=== PATIENT | female | born 1935 | race American Indian/Alaskan Native ===

== ENCOUNTER 2016-10-01 11:34 | Outpatient (CLI) | payer MEDICARE ==
--- NOTE | 2016-10-01 13:44 | Mammography Report ---
Right mammogram: Compared to 04/23/15. CAD study utilized. Findings: Predominance of adipose tissue. Benign calcifications. 3 mm new density right mid breast seen on MLO view. Normal axilla. Impression: New focal density right breast. Recommend spot magnification and sonographic examination. BI-RADS CATEGORY: 0 = Needs additional imaging evaluation ACR BI-RADS MAMMOGRAPHIC CODES: 0 = Needs additional imaging evaluation; 1 = Negative; 2 = Benign; 3 = Probably benign; 4 = Suspicious; 5 = Malignant; 6 = Known biopsy-proven malignancy COMMENT: 1. Dense breast tissue, i.e., adenosis, fibrocystic changes, etc., may obscure an underlying neoplasm. 2. Approximately 10% of cancers are not detected with mammography. 3. A negative mammography report should not delay biopsy if a clinically suspicious mass is present.
== END 2016-10-01 11:35 | disposition home or self-care (01) ==
LOC: MAMMO 11:34
PROVIDERS: ATTEND Family Medicine
DX: Z12.31 Encounter for screening mammogram for malignant neoplasm of breast (principal)
CPT/HCPCS: G0202-52

== ENCOUNTER 2016-11-19 09:30 | Outpatient (CLI) | payer MEDICARE ==
--- NOTE | 2016-11-19 11:42 | Ultrasound Report ---
Right mammogram and right breast ultrasound: Based on a recent screening examination additional lateral compression views of the breasts in addition to a tomographic exam of the right breast are performed. A 6 mm area of slightly irregular asymmetry is again identified in the right breast only in the lateral projection. On the tomographic images this finding is again noted to be relatively central in the breast. Review of prior CC view however fails to demonstrate a comparable finding. The results technician and I examined the breast by ultrasound and no focal finding identified. Impression: Probably benign right breast finding. Recommendation: 6 month repeat mammogram followup of the right breast. The findings and recommendations have been discussed with the patient. BI-RADS CATEGORY: 3 = Probably benign ACR BI-RADS MAMMOGRAPHIC CODES: 0 = Needs additional imaging evaluation; 1 = Negative; 2 = Benign; 3 = Probably benign; 4 = Suspicious; 5 = Malignant; 6 = Known biopsy-proven malignancy COMMENT: 1. Dense breast tissue, i.e., adenosis, fibrocystic changes, etc., may obscure an underlying neoplasm. 2. Approximately 10% of cancers are not detected with mammography. 3. A negative mammography report should not delay biopsy if a clinically suspicious mass is present.
== END 2016-11-19 09:31 | disposition home or self-care (01) ==
LOC: MAMMO 09:30
PROVIDERS: ATTEND Family Medicine
DX: R92.8 Other abnormal and inconclusive findings on diagnostic imaging of breast (principal)
CPT/HCPCS: 76642; G0206

== ENCOUNTER 2017-10-05 08:41 | Outpatient (CLI) | payer MEDICARE ==
--- NOTE | 2017-10-05 15:35 | Mammography Report ---
RIGHT DIGITAL DIAGNOSTIC MAMMOGRAM with CAD: 10/05/17 08:41:00 CLINICAL: Breast cancer survivor status post left mastectomy. A probably benign asymmetry in the last mammogram with a negative ultrasound. She was supposed to return in May for followup but is just now appearing for followup. COMPARISON:11/19/16 and 10/01/16 mammograms. FINDINGS: Routine views without and with spot magnification were performed. The breast is mostly fatty stable pattern. Stable low-density upper-outer focal asymmetry on all views. No architectural distortion or suspicious calcifications. IMPRESSION: A stable probably benign focal asymmetry. Recommend six month followup right mammogram. BI-RADS CATEGORY: 3 - - Probably Benign ACR BI-RADS MAMMOGRAPHIC CODES: 0 = Needs additional imaging evaluation; 1 = Negative; 2 = Benign; 3 = Probably benign; 4 = Suspicious; 5 = Malignant; 6 = Known biopsy-proven malignancy COMMENT: 1. Dense breast tissue, i.e., adenosis, fibrocystic changes, etc., may obscure an underlying neoplasm. 2. Approximately 10% of cancers are not detected with mammography. 3. A negative mammography report should not delay biopsy if a clinically suspicious mass is present. COMMENT: Patient follow-up letters are generated via our [employer] application.
== END 2017-10-05 08:42 | disposition home or self-care (01) ==
LOC: MAMMO 08:41
DX: N64.89 Other specified disorders of breast (principal); R92.8 Other abnormal and inconclusive findings on diagnostic imaging of breast; Z90.12 Acquired absence of left breast and nipple

== ENCOUNTER 2018-01-08 11:05 | Emergency (ER) | payer MEDICARE ==
[2018-01-08 11:18] VITALS: BP 135/63
[2018-01-08] MEDS ORDERED: TYLENOL #3 PO ONE (11:53)
[2018-01-08] MEDS ORDERED: DELTASONE PO ONE (12:00)
--- NOTE | 2018-01-08 12:09 | Emergency Department Report ---
Chief Complaint: Extremity Injury, Upper Stated Complaint: LEFT HAND SWOLLEN Time Seen by Provider: 01/08/18 11:49 - HPI History of Present Illness: 82-year-old female presents to the emergency department with complaint of swelling and his comfort to the left arm and hand. The patient has a history of some chronic lymphedema secondary to left-sided breast mastectomy from previous breast cancer, but she says that the swelling has worsened. 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 She denies any chest pain, shortness of breath, nausea, vomiting, fever. She has not taken anything for symptoms for presentation. She went into an urgent care today and was told to the emergency department for further evaluation. No recent travel or sick contacts at home. - ROS Review of Systems: Positive for left arm swelling, left arm pain Negative for fever, chest pain, shortness of breath, nausea, vomiting - Exam Vital Signs: Vital Signs 01/08/18 11:13 Temperature 98.9 F Pulse Rate 76 Respiratory 19 Rate Blood Pressure 135/63 O2 Sat by Pulse 100 Oximetry Physical Exam: Patient is awake and alert and in no acute distress. Heart and lung sounds are normal to auscultation. The patient does appear to have moderate to severe swelling of the left arm and hand. The forearm and distal bicep also appear to have some erythema or mild urticaria. Radial pulse +2 over 4. Refill less than 2 seconds. MSE screening note: Focused history and physical exam performed. Due to findings the following was ordered: The patient will have a CBC, BMP and uric acid done for labs. She will have a left upper extremity venous Doppler done. She'll be given a Tylenol 3 for discomfort and she will get some prednisone for possible allergic reaction ED Disposition for MSE Condition: Stable Referrals: WILL PETTY MD [Primary Care Provider] - 3-5 Days
[2018-01-08 12:50] LABS: Basophils # (Auto) 0.1 K/mm3 (0.0-0.1); Basophils % (Auto) 0.4 % (0.0-1.8); Hematocrit 34.5 % (30.3-42.9); Hemoglobin 11.2 gm/dl (10.1-14.3); Lymphocytes # (Auto) 1.5 K/mm3 (1.2-5.4); Lymphocytes % (Auto) 12.9 % (13.4-35.0); Mean Corpuscular HGB Conc 33 % (30-34); Mean Corpuscular Hemoglobin 29 pg (28-32); Mean Corpuscular Volume 89 fl (79-97); Monocytes # (Auto) 0.8 K/mm3 (0.0-0.8); Monocytes % (Auto) 7.1 % (0.0-7.3); Platelet Count 289 K/mm3 (140-440); Red Blood Count 3.87 M/mm3 (3.65-5.03); Red Cell Distribution Width 13.4 % (13.2-15.2)
[2018-01-08 13:06] LABS: Calcium 9.3 mg/dL (8.4-10.2); Uric Acid 6.1 mg/dL (3.5-7.6)
--- NOTE | 2018-01-08 14:47 | Emergency Department Report ---
ED Upper Extremity Inj HPI - General Chief Complaint: Extremity Injury, Upper Stated Complaint: LEFT HAND SWOLLEN Time Seen by Provider: 01/08/18 11:49 Source: patient Mode of arrival: Ambulatory Limitations: No Limitations - History of Present Illness Initial Comments: This is a 82-year-old -[place] female that presents with a left swollen arm that started around 1600 yesterday. Patient has a history of left-sided mastectomy and always has slight swelling to the left arm. Patient's daughter reports swelling became worse after eating lasagna yesterday. Patient reports going over to urgent care this morning and they advised her to follow-up here in the emergency room for labs and scans. Patient reports pain and difficulty moving fingers. Complaint: Injury to:: left, arm -: days(s) (started yesterday around 1600) Other Extremity Injury: Arm: Left (swollen and painful ROM) Other Injuries: none Handedness: right Place: home Severity scale (0 -10): 9 Improves With: immobilization Worsens With: movement of extremity Context: other (unknown cause) Associated Symptoms: denies other symptoms - Related Data Home Medications Medication Instructions Recorded Confirmed Last Taken Eazit-Nluws-Zakk 5-160-12.5 mg 160 mg PO DAILY 06/15/15 06/18/15 06/16/15 Donepezil 1 tab PO DAILY 06/15/15 06/18/15 06/18/15 Ferrous Sulfate 1 tab PO DAILY 06/15/15 06/18/15 06/11/15 Pravastatin 10 mg PO DAILY 06/15/15 06/18/15 06/16/15 Vitamin C 1 tab PO DAILY 06/15/15 06/18/15 06/16/15 Vitamin D3 20,000 tab PO DAILY 06/15/15 06/18/15 06/16/15 Previous Rx's Medication Instructions Recorded Last Taken Type Acetaminophen/Codeine [Tylenol #3] 1 tab PO Q6H PRN #15 tab 01/18/16 Unknown Rx Docusate Sodium [Colace] 100 mg PO BID PRN #30 capsule 01/18/16 Unknown Rx Phenyleph/Mineral Oil/Petrolat 57 gm RC QID #1 oint.appl 01/18/16 Unknown Rx [Preparation H Ointment] Phenylephrine HCl/Dutton Butter 1 each RC QID #1 pack 01/18/16 Unknown Rx [Preparation H Suppository] Acetaminophen/Codeine [Tylenol 1 tab PO Q6H PRN #15 tab 01/08/18 Unknown Rx /Codeine # 3 tab] Prednisone [predniSONE 5 mg (6-Day 5 mg PO .TAPER #1 tab.ds.pk 01/08/18 Unknown Rx Pack, 21 Tabs)] Sulfamethoxazole/Trimethoprim 1 each PO BID 10 Days #20 tablet 01/08/18 Unknown Rx [Bactrim DS TAB] Allergies Allergy/AdvReac Type Severity Reaction Status Date / Time latex Allergy Rash Verified 06/15/15 10:03 Penicillins AdvReac Nausea Verified 10/01/16 11:35 ED Review of Systems ROS: Stated complaint: LEFT HAND SWOLLEN Other details as noted in HPI Constitutional: denies: chills, fever Respiratory: denies: cough, shortness of breath, wheezing Cardiovascular: denies: chest pain, palpitations, syncope Gastrointestinal: denies: abdominal pain, nausea, diarrhea Musculoskeletal: joint swelling, arthralgia (LUE). denies: back pain Skin: rash (uticarial rash to LUE, from shoulder to elbow ). denies: lesions Neurological: denies: headache, weakness, paresthesias Psychiatric: denies: anxiety, depression ED Past Medical Hx - Past Medical History Hx Hypertension: Yes (MITRAL VALVE REGURGITATION) Hx Arthritis: Yes Hx Asthma: No Hx Dementia: Yes (EARLY ONSET) Hx HIV: No Additional medical history: gout, BREAST CANCER LEFT BREAST - Surgical History Past Surgical History?: Yes Additional Surgical History: LEFT SIDED MASTECTOMY 2002 - Social History Smoking Status: Never Smoker Substance Use Type: None - Medications Home Medications: Home Medications Medication Instructions Recorded Confirmed Last Taken Type Bdwcx-Exjvl-Aktt 5-160-12.5 mg 160 mg PO DAILY 06/15/15 06/18/15 06/16/15 History Donepezil 1 tab PO DAILY 06/15/15 06/18/15 06/18/15 History Ferrous Sulfate 1 tab PO DAILY 06/15/15 06/18/15 06/11/15 History Pravastatin 10 mg PO DAILY 06/15/15 06/18/15 06/16/15 History Vitamin C 1 tab PO DAILY 06/15/15 06/18/15 06/16/15 History Vitamin D3 20,000 tab PO DAILY 06/15/15 06/18/1506/16/15 History Acetaminophen/Codeine [Tylenol #3] 1 tab PO Q6H PRN #15 tab 01/18/16 Unknown Rx Docusate Sodium [Colace] 100 mg PO BID PRN #30 capsule 01/18/16 Unknown Rx Phenyleph/Mineral Oil/Petrolat 57 gm RC QID #1 oint.appl 01/18/16 Unknown Rx [Preparation H Ointment] Phenylephrine HCl/Dutton Butter 1 each RC QID #1 pack 01/18/16 Unknown Rx [Preparation H Suppository] Acetaminophen/Codeine [Tylenol 1 tab PO Q6H PRN #15 tab 01/08/18 Unknown Rx /Codeine # 3 tab] Prednisone [predniSONE 5 mg (6-Day 5 mg PO .TAPER #1 tab.ds.pk 01/08/18 Unknown Rx Pack, 21 Tabs)] Sulfamethoxazole/Trimethoprim 1 each PO BID 10 Days #20 tablet 01/08/18 Unknown Rx [Bactrim DS TAB] ED Physical Exam - General Limitations: No Limitations General appearance: alert, in no apparent distress - Respiratory Respiratory exam: Present: normal lung sounds bilaterally. Absent: respiratory distress, wheezes, rales, rhonchi, stridor, accessory muscle use - Cardiovascular Cardiovascular Exam: Present: regular rate, normal rhythm, normal heart sounds. Absent: systolic murmur, diastolic murmur, rubs, gallop - GI/Abdominal GI/Abdominal exam: Present: soft, normal bowel sounds. Absent: distended, tenderness, guarding, rebound, rigid, organomegaly, mass - Extremities Exam Extremities exam: Present: normal inspection, full ROM, normal capillary refill. Absent: pedal edema, joint swelling, calf tenderness - Expanded Upper Extremity Exam Left Shoulder Exam: Present: full ROM. Absent: tenderness over AC joint Upper Arm exam: Present: full ROM, swelling, erythema. Absent: tenderness, abrasion, laceration, ecchymosis, deformity, crepidus, dislocation Elbow exam: Present: normal inspection, full ROM Forearm Wrist exam: Present: swelling Hand Wrist exam: Present: swelling. Absent: laceration, ecchymosis, deformity, crepidus, erythema, amputation Neuro motor exam: Present: wrist extension intact, thumb opposition intact, thumb adduction intact Neurosensory exam: Present: radial nerve intact, median nerve intact Vascular: Present: normal capillary refill, radial pulse - Neurological Exam Neurological exam: Present: alert, oriented X3 - Psychiatric Psychiatric exam: Present: normal affect, normal mood - Skin Skin exam: Present: warm, dry, intact, normal color, rash (multiple 1-2 cm erythematous wheals, LUE from anterior shoulder to elbow) ED Course Vital Signs 01/08/18 01/08/18 11:13 12:10 Temperature 98.9 F Pulse Rate 76 Respiratory 19 18 Rate Blood Pressure 135/63 O2 Sat by Pulse 100 Oximetry ED Medical Decision Making - Lab Data Result diagrams: 01/08/18 12:04 01/08/18 12:04 - Radiology Data Radiology results: report reviewed LUE VENOUS DUPLEX COMPLETED. VAS LAB PRELIMINARY REPORT; NO EVIDENCE OF DVT/SVT NOTED IN VESSELS/SEGMENTS EXAMINED. PHYSICIANS REPORT TO FOLLOW - Medical Decision Making 82 y.o. female that presents with LUE swelling for 1 day. Patient examined by me and Dr. Hernandez. She is in no acute distress. Vitals stable. Given prednisone 40 mg po once and tylenol #3 once in ER. Obtained BMP, CBC, and US of LUE. WBC' s 11.9 and BUN 28, all other labs and US normal. Physcial assessment findings susceptible of cellulitis and acute allergic reaction. Start tylenol #3, bactrim DS, and prednisone. Discharged home stable. Follow up with primary care provider in 2-3 days. Critical care attestation.: If time is entered above; I have spent that time in minutes in the direct care of this critically ill patient, excluding procedure time. ED Disposition Clinical Impression: Acute urticaria Cellulitis Qualifiers: Site of cellulitis: extremity Site of cellulitis of extremity: upper extremity Laterality: left Qualified Code(s): L03.114 - Cellulitis of left upper limb Disposition: TO HOME OR SELFCARE Is pt being admited?: No Does the pt Need Aspirin: No Condition: Stable Instructions: Urticaria (ED), Cellulitis (ED) Additional Instructions: Complete full course of antibiotics as prescribed. Follow-up with primary care in 2-3 days. Take Tylenol 3 as needed for pain as prescribed. Elevate arm while sitting. Prescriptions: Acetaminophen/Codeine [Tylenol /Codeine # 3 tab] 1 tab PO Q6H PRN #15 tab PRN Reason: Pain Prednisone [predniSONE 5 mg (6-Day Pack, 21 Tabs)] 5 mg PO .TAPER #1 tab.ds.pk Sulfamethoxazole/Trimethoprim [Bactrim DS TAB] 1 each PO BID 10 Days #20 tablet Referrals: WILL PETTY MD [Primary Care Provider] - 3-5 Days [facility] [Provider Group] - 3-5 Days [facility] [Provider Group] - 3-5 Days Time of Disposition: 15:00 Print Language: CROATIAN
--- NOTE | 2018-01-12 15:57 | Vascular Lab Report ---
LEFT UPPER EXTREMITY VENOUS DUPLEX: REASON FOR EXAM: Pain and swelling of the left upper extremity COMMENTS ON THE LEFT: All arm veins visualized are freely compressible without evidence of internal echogenicity. The subclavian and internal jugular veins are free of thrombus. Flow is spontaneous and phasic throughout. COMMENTS ON THE RIGHT: A limited study of the jugular and subclavian veins shows no evidence of thrombus. IMPRESSION: No evidence of acute or chronic deep venous thrombosis in the left upper extremity.
== END 2018-01-08 15:24 | disposition home or self-care (01) ==
LOC: ED 11:05
DX: L03.114 Cellulitis of left upper limb (principal); L50.9 Urticaria, unspecified; Z88.0 Allergy status to penicillin; Z91.040 Latex allergy status; I10 Essential (primary) hypertension; M10.9 Gout, unspecified; Z85.3 Personal history of malignant neoplasm of breast; Z90.12 Acquired absence of left breast and nipple
CPT/HCPCS: 36415; 80048; 84550; 85025; 93971; 99283; J7512

== ENCOUNTER 2018-03-19 08:58 | Outpatient (CLI) | payer MEDICARE ==
--- NOTE | 2018-03-19 13:58 | Mammography Report ---
Right mammogram: Cancer survivor with left mastectomy. Short-term followup for right breast asymmetry. There is a small nodule in the upper outer right breast. Compared to prior examination of October 05, 2017 this is unchanged. The remainder the breast pattern is generally fatty replaced with a few scattered benign calcifications. These findings are also stable. No new findings. Impression: Stable probably benign right nodule. Recommendation: Repeat mammogram in 6 months. BI-RADS CATEGORY: 3 = Probably benign ACR BI-RADS MAMMOGRAPHIC CODES: 0 = Needs additional imaging evaluation; 1 = Negative; 2 = Benign; 3 = Probably benign; 4 = Suspicious; 5 = Malignant; 6 = Known biopsy-proven malignancy COMMENT: 1. Dense breast tissue, i.e., adenosis, fibrocystic changes, etc., may obscure an underlying neoplasm. 2. Approximately 10% of cancers are not detected with mammography. 3. A negative mammography report should not delay biopsy if a clinically suspicious mass is present. The
== END 2018-03-19 08:59 | disposition home or self-care (01) ==
LOC: MAMMO 08:58
DX: Z12.31 Encounter for screening mammogram for malignant neoplasm of breast (principal); I10 Essential (primary) hypertension; E78.00 Pure hypercholesterolemia, unspecified; M19.90 Unspecified osteoarthritis, unspecified site; D64.9 Anemia, unspecified; Z90.710 Acquired absence of both cervix and uterus; Z90.12 Acquired absence of left breast and nipple